=== PATIENT | female | born 1980 | race Caucasian/White ===

== ENCOUNTER 2016-10-11 13:29 | Emergency (ER) | payer BC ==
[~2016-10-11] VITALS: Ht 165.1 cm; Wt 69.3 kg
[~2016-10-11 13:29] MED LIST: AUGMENTIN875 MG PO; BENADRYL25 MG PO; ENDOCET 5-3251 EACH PO; IBUPROFEN800 MG PO; NASONEX17 GM BOTH NARES; SINGULAIR10 MG PO; ZYRTEC10 M2 PO
[2016-10-11 14:41] LABS: BASOPHIL COUNT 0.1 K/uL (0-0.1); EOSINOPHIL (%) 5.1 % (0-5); EOSINOPHIL COUNT 0.6 K/uL (0-0.3); HEMATOCRIT 40.4 % (36.0-46.0); IMMATURE GRANULOCYTE (%) 0.2 % (0.0-0.7); IMMATURE GRANULOCYTE COUNT 0.2 K/uL; LYMPHOCYTE COUNT 2.8 K/uL (1.0-2.8); MCH 29.9 PG (29.0-34.0); MCHC 34.4 G/DL (30.0-36.0); MCV 86.9 FL (83-99); MEAN PLAT.VOLUME 10.6 uM^3 (9.5-12.4); MONOCYTE COUNT 0.5 K/uL (0-0.8); NEUTROPHIL (%) 64.8 % (45-76); NEUTROPHIL COUNT 7.3 K/uL (1.8-6.4); PLATELET COUNT 274 K/uL (156-360); RBC DIS.WIDTH-CV 13.4 % (11.8-14.6); RED BLOOD COUNT 4.65 M/uL (3.80-5.20); WHITE BLOOD COUNT 11.2 K/uL (4.1-10.2)
[2016-10-11 14:51] LABS: CHLORIDE 104 mEq/L (99-109); SODIUM 140 mEq/L (136-147)
[2016-10-11 14:53] LABS: GLUCOSE 87 mg/dL (70-99)
[2016-10-11 14:54] LABS: D-DIMER ELISA < 0.15 mg/L FEU (< 0.57)
[2016-10-11 14:55] LABS: ANION GAP 15 MEQ/L (2-14)
[2016-10-11 14:57] LABS: GFR ESTIMATE (CALCULATED) > 59 mL/min/
[2016-10-11 14:58] LABS: UREA NITROGEN (BUN) 9 mg/dL (9-23)
[2016-10-11 15:04] LABS: TROP-I INTERPRETATION NEGATIVE; TROPONIN-I < 0.01 ng/mL (0.0-0.30)
[2016-10-11 15:05] LABS: QUANTITATIVE HCG < 4.0 MIU/ML
[2016-10-11] MEDS ORDERED: INDOCIN50 MG PO (15:56)
[2016-10-11] MEDS ORDERED: CARAFATE100 MG/ML PO (15:56)
[2016-10-11 16:17] VITALS: BP 122/84
== END 2016-10-11 16:17 | disposition home or self-care (01) ==
LOC: EME 13:29
PROVIDERS: Emergency Medicine
DX: R07.89 Other chest pain (principal); J45.909 Unspecified asthma, uncomplicated; K21.9 Gastro-esophageal reflux disease without esophagitis; Z87.891 Personal history of nicotine dependence
CPT/HCPCS: 71010; 80048; 84484; 84702; 85025; 85379; 93005; 99281; 99284